=== PATIENT | male | born 1960 | race Caucasian/White ===

== ENCOUNTER 2018-03-22 07:15 | Day surgery (SDC) | payer BC ==
[2018-03-21 14:37] VITALS: BMI 27.4
[2018-03-22] MEDS ORDERED: Lactated Ringer's 1,000 ML IV ONE ×2 (09:20)
[2018-03-22] MEDS ORDERED: Propofol 10 mg/ml Inj (20 ML) ONE ×2 (09:24→09:38)
--- NOTE | 2018-03-22 09:26 | CP.SDSHP ---
Same Day Surgery H & P - History Proposed Procedure: colonosocpy Pre-Op Diagnosis: screening - Previous Medical/Surgical History Cardiac: Hypertension - Allergies Allergies: Allergies No Known Allergies Allergy (Verified 03/22/18 07:38) - Physical Exam Vital Signs: Vital Signs 03/22/18 07:43 Temperature 97.8 F Pulse Rate 55 L Respiratory 19 Rate Blood Pressure 143/89 O2 Sat by Pulse 99 Oximetry Mental Status: Alert & Oriented x3 Neuro: WNL Heart: WNL Lungs: WNL GI: WNL - {Optional Preform as Required} Abdomen: WNL - Date & Time Date: 03/22/18 Time: 09:10 Short Stay Discharge - Short Stay Discharge Admitting Diagnosis/Reason for Visit: ENCOUNTER FOR SCREENING FOR MALIGNANT NEOPLASM OF Disposition: HOME/ ROUTINE Referrals: Pat Perla [Primary Care Provider] -
[2018-03-22 10:03] VITALS: O2SAT 100
[2018-03-22 10:45] VITALS: BP 134/84; PULSE 52; RESP 18; TEMP 98.4
== END 2018-03-22 11:02 | disposition home or self-care (01) ==
LOC: C.ENDO 07:15
PROVIDERS: ATTEND Internal Medicine Gastroenterology
DX: Z12.11 Encounter for screening for malignant neoplasm of colon (principal); K57.30 Diverticulosis of large intestine without perforation or abscess without bleeding; D12.3 Benign neoplasm of transverse colon
CPT/HCPCS: 45380; 88305; J2704; J7120